=== PATIENT | female | born 1975 ===

== ENCOUNTER 2019-10-12 13:17 | Emergency (ER) | payer OTHER ==
[~2019-10-12] VITALS: Ht 170.2 cm; Wt 72.6 kg
[~2019-10-12 13:17] MED LIST: NEOCOLOTSU BOTHEARS
[2019-10-12] MEDS ORDERED: CLON2 PO (13:48)
[2019-10-12] MEDS ORDERED: PROM25 PO (13:48)
[2019-10-12] MEDS ORDERED: DICY20 PO (13:48)
[2019-10-12] MEDS ORDERED: Catapres0.2 MG PO (13:49)
== END 2019-10-12 14:10 | disposition home or self-care (01) ==
LOC: ER 13:17
DX: F11.23 Opioid dependence with withdrawal (principal); Z88.8 Allergy status to other drugs, medicaments and biological substances
CPT/HCPCS: 99283

== ENCOUNTER 2019-10-26 08:15 | Emergency (ER) | payer OTHER ==
[~2019-10-26] VITALS: Ht 170.2 cm; Wt 79.4 kg
[~2019-10-26 08:15] MED LIST changes: +CLON2 PO; +Catapres0.2 MG PO; +Cleocin HCl150 MG PO; +DICY20 PO; +PROM25 PO
[2019-10-26] MEDS ORDERED: Cleocin HCl150 MG PO (08:26)
[2019-10-26] MEDS ORDERED: Keflex500 MG PO (08:42)
[2019-10-26] MEDS ORDERED: Bactrim Ds Tab1 EACH PO (08:42)
== END 2019-10-26 08:57 | disposition home or self-care (01) ==
LOC: ER 08:15
DX: Z48.01 Encounter for change or removal of surgical wound dressing (principal); F17.210 Nicotine dependence, cigarettes, uncomplicated; Z88.8 Allergy status to other drugs, medicaments and biological substances
CPT/HCPCS: 99282

== ENCOUNTER 2020-02-04 20:57 | Emergency (ER) | payer OTHER ==
[~2020-02-04] VITALS: Ht 170.2 cm; Wt 77.1 kg
[~2020-02-04 20:57] MED LIST changes: +Bactrim Ds Tab1 EACH PO; +Keflex500 MG PO
== END 2020-02-04 22:45 | disposition left against medical advice (07) ==
LOC: ER 20:57
DX: Z53.21 Procedure and treatment not carried out due to patient leaving prior to being seen by health care provider (principal)